=== PATIENT | female | born 1950 | race Caucasian/White ===

== ENCOUNTER 2021-11-20 00:11 | Emergency (ER) | payer MEDICARE, OTHER ==
[2021-11-20] MEDS ORDERED: SODIUM CHLORIDE 0.9% 1,000 ML IV STA (00:19)
--- NOTE | 2021-11-20 00:20 | ED ---
Neuro HPI - General Stated Complaint: Confusion Time Seen by Provider: 11/20/21 00:17 Source: RN notes reviewed, old records reviewed Limitations: no limitations - History of Present Illness Is the patient presenting with stroke symptoms?: No -: minutes(s) Initial Comments: This is a 71-year-old female to the emergency department for evaluation. Aj harkins has no medical history takes no medications no headaches no chest pain no shortness of breath. Patient had repetitive questioning after basketball game tonight. Acting herself a little disoriented low depressed a little anxious. Patient is recent hospital with no acute findings. Patient presents today with severe findings. Patient still having some mild repetitive questioning but much improved to prior Location: speech History of same: No Place: outdoors Severity: mild Quality: improving Improves With: time Context: sudden onset Associated Symptoms: confusion Treatments Prior to Arrival: none - Related Data Allergies/Adverse Reactions: Allergies Allergy/AdvReac Type Severity Reaction Status Date / Time clarithromycin [From Biaxin] Allergy Rash/Hives Verified 11/20/21 00:27 Review of Systems ROS Statement: Those systems with pertinent positive or pertinent negative responses have been documented in the HPI. ROS Other: All systems not noted in ROS Statement are negative. General Exam - General Exam Comments Initial Comments: NIH of 0 General appearance: alert, in no apparent distress Head exam: Present: atraumatic, normocephalic, normal inspection Eye exam: Present: normal appearance, PERRL, EOMI. Absent: scleral icterus, conjunctival injection, periorbital swelling ENT exam: Present: normal exam, mucous membranes moist Neck exam: Present: normal inspection. Absent: tenderness, meningismus, lymphadenopathy Respiratory exam: Present: normal lung sounds bilaterally. Absent: respiratory distress, wheezes, rales, rhonchi, stridor Cardiovascular Exam: Present: regular rate, normal rhythm, normal heart sounds. Absent: systolic murmur, diastolic murmur, rubs, gallop, clicks GI/Abdominal exam: Present: soft, normal bowel sounds. Absent: distended, tenderness, guarding, rebound, rigid Extremities exam: Present: normal inspection, full ROM, normal capillary refill. Absent: tenderness, pedal edema, joint swelling, calf tenderness Back exam: Present: normal inspection Neurological exam: Present: alert, oriented X3, CN II-XII intact Psychiatric exam: Present: normal affect, normal mood Skin exam: Present: warm, dry, intact, normal color. Absent: rash Stroke MDM - Lab Data Result diagrams: 11/20/21 00:27 11/20/21 00:27 Lab Results 11/20/21 11/20/21 11/20/21 Range/Units 00: 00:27 00:27 WBC 10.4 (3.8-10.6) k/uL RBC 4.37 (3.80-5.40) m/uL Hgb 13.5 (11.4-16.0) gm/dL Hct 43.1 (34.0-46.0) % MCV 98.6 (80.0-100.0) fL MCH 31.0 (25.0-35.0) pg MCHC 31.4 (31.0-37.0) g/dL RDW 12.6 (11.5-15.5) % Plt Count 452 H (150-450) k/uL MPV 6.6 Neutrophils % 63 % Lymphocytes % 28 % Monocytes % 5 % Eosinophils % 1 % Basophils % 1 % Neutrophils # 6.5 (1.3-7.7) k/uL Lymphocytes # 2.9 (1.0-4.8) k/uL Monocytes # 0.6 (0-1.0) k/uL Eosinophils # 0.1 (0-0.7) k/uL Basophils # 0.1 (0-0.2) k/uL PT 10.3 (9.0-12.0) sec INR 0.9 (<1.2) APTT 22.1 (22.0-30.0) sec Sodium (137-145) mmol/L Potassium (3.5-5.1) mmol/L Chloride (98-107) mmol/L Carbon Dioxide (22-30) mmol/L Anion Gap mmol/L BUN (7-17) mg/dL Creatinine (0.52-1.04) mg/dL Est GFR (CKD-EPI)AfAm (>60 ml/min/1.73 sqM) Est GFR (CKD-EPI)NonAf (>60 ml/min/1.73 sqM) Glucose (74-99) mg/dL POC Glucose (mg/dL) 151 H (75-99) mg/dL POC Glu Director Style Nikhil Mckeon Calcium (8.4-10.2) mg/dL Total Bilirubin (0.2-1.3) mg/dL AST (14-36) U/L ALT (4-34) U/L Alkaline Phosphatase (38-126) U/L Troponin I (0.000-0.034) ng/mL Total Protein (6.3-8.2) g/dL Albumin (3.5-5.0) g/dL 11/20/21 11/20/21 Range/Units 00:27 00:27 WBC (3.8-10.6) k/uL RBC (3.80-5.40) m/uL Hgb (11.4-16.0) gm/dL Hct (34.0-46.0) % MCV (80.0-100.0) fL MCH (25.0-35.0) pg MCHC (31.0-37.0) g/dL RDW (11.5-15.5) % Plt Count (150-450) k/uL MPV Neutrophils % % Lymphocytes % % Monocytes % % Eosinophils % % Basophils % % Neutrophils # (1.3-7.7) k/uL Lymphocytes # (1.0-4.8) k/uL Monocytes # (0-1.0) k/uL Eosinophils # (0-0.7) k/uL Basophils # (0-0.2) k/uL PT (9.0-12.0) sec INR (<1.2) APTT (22.0-30.0) sec Sodium 136 L (137-145) mmol/L Potassium 3.5 (3.5-5.1) mmol/L Chloride 103 (98-107) mmol/L Carbon Dioxide 19 L (22-30) mmol/L Anion Gap 14 mmol/L BUN 22 H (7-17) mg/dL Creatinine 0.95 (0.52-1.04) mg/dL Est GFR (CKD-EPI)AfAm 70 (>60 ml/min/1.73 sqM) Est GFR (CKD-EPI)NonAf 61 (>60 ml/min/1.73 sqM) Glucose 154 H (74-99) mg/dL POC Glucose (mg/dL) (75-99) mg/dL POC Glu Director Style ID Calcium 9.7 (8.4-10.2) mg/dL Total Bilirubin 0.7 (0.2-1.3) mg/dL AST 33 (14-36) U/L ALT 22 (4-34) U/L Alkaline Phosphatase 65 (38-126) U/L Troponin I <0.012 (0.000-0.034) ng/mL Total Protein 8.3 H (6.3-8.2) g/dL Albumin 5.1 H (3.5-5.0) g/dL - NIH Stroke Scale 1a. Level of Consciousness: (0) alert 1b. LOC Questions: (0) answers correctly 1c. LOC Commands: (0) performs tasks correctly 2. Best Gaze: (0) normal 3. Visual: (0) no visual loss 4. Facial Palsy: (0) normal symmetrical movement 5a. Motor Arm Left: (0) no drift 5b. Motor Arm Right: (0) no drift 6a. Motor Leg Left: (0) no drift 6b. Motor Leg Right: (0) no drift 7. Limb Ataxia: (0) absent 8. Sensory: (0) normal 9. Best Language: (0) no aphasia 10. Dysarthria: (0) normal 11. Extinction/Inattention: (0) no abnormality - Medical Decision Making 71 female to the emergency department for evaluation of repetitive questioning and some confusion. Symptoms resolved upon arrival she is out without neurological deficit and can be discharged home - Radiology Data Radiology results: report reviewed (CT brain CT had neck negative for acute disease), image reviewed - EKG Data -: EKG Interpreted by Me (EKG is sinus rhythm 83 MT 153 QRS 76 QTC 410) Course Vital Signs 11/20/21 11/20/21 11/20/21 00:17 00:32 00:47 Temperature 97.9 F 98.0 F Pulse Rate 87 82 82 Respiratory 18 16 18 Rate Blood Pressure 131/117 126/103 138/97 O2 Sat by Pulse 100 96 99 Oximetry 11/20/21 11/20/21 11/20/21 01:02 01:17 01:32 Temperature Pulse Rate 84 90 89 Respiratory 18 22 18 Rate Blood Pressure 162/89 163/80 153/80 O2 Sat by Pulse 99 97 99 Oximetry 11/20/21 11/20/21 11/20/21 02:53 02:55 04:00 Temperature Pulse Rate 78 78 85 Respiratory 16 18 18 Rate Blood Pressure 159/79 167/68 134/69 O2 Sat by Pulse 98 99 Oximetry - Reevaluation(s) Reevaluation #1: 11/20/21 04:30 Medical record is reviewed Reevaluation #2: 11/20/21 04:30 Patient was under observation here in the ER with no neurological findings or changes Reevaluation #3: 11/20/21 04:30 Patient family informed of results and questions answered Reevaluation #4: 11/20/21 04:30 Patient remains with an NIH of 0, same his presentation Reevaluation #5: 11/20/21 04:30 Patient feels good for discharge home as well as family does to - Consultations Consultation #1: Spoke with for neuro intervention and he will recommend against TPA Disposition Clinical Impression: Transient cerebral ischemia Disposition: HOME SELF-CARE Condition: Good Instructions (If sedation given, give patient instructions): Transient Ischemic Attack (ED) Is patient prescribed a controlled substance at d/c from ED?: No Referrals: Nonstaff,Physician [Primary Care Provider] - 1-2 days
[2021-11-20] MEDS ORDERED: ALTEPLASE IV STA (00:21)
[2021-11-20] MEDS ORDERED: ALTEPLASE BOLUS FOR STROKE 5 MG in EMPTY SYRINGE 1 SYR IV STA (00:21)
[2021-11-20 00:24] LABS: Glucose,Whole Blood 151 mg/dL (75-99)
--- NOTE | 2021-11-20 00:43 | CT ---
EXAMINATION TYPE: CT brain wo con for TPA DATE OF EXAM: 11/20/2021 COMPARISON: Weakness HISTORY: stroke CT DLP: 1008 mGycm Automated exposure control for dose reduction was used. Images obtained of the brain without contrast. Ventricles of normal size. There is no mass effect or midline shift. There is no sign of intracranial hemorrhage. There is no evidence of cerebral edema. Calvarium is intact. IMPRESSION: Normal unenhanced head CT scan.
--- NOTE | 2021-11-20 00:43 | XR ---
EXAMINATION TYPE: XR chest 1V DATE OF EXAM: 11/20/2021 COMPARISON: NONE HISTORY: Altered mental status TECHNIQUE: Single view FINDINGS: Heart and mediastinum are normal. Lungs are clear. Diaphragm is normal. Bony thorax appears normal. IMPRESSION: Normal chest.
[2021-11-20 01:02] LABS: Basophils # (A) 0.1 k/uL (0-0.2); Basophils % (A) 1 %; Eosinophils # (A) 0.1 k/uL (0-0.7); Eosinophils % (A) 1 %; HCT 43.1 % (34.0-46.0); HGB 13.5 gm/dL (11.4-16.0); Lymphocytes # (A) 2.9 k/uL (1.0-4.8); Lymphocytes % (A) 28 %; MCHC 31.4 g/dL (31.0-37.0); MCV 98.6 fL (80.0-100.0); Mean Platelet Volume 6.6; Monocytes # (A) 0.6 k/uL (0-1.0); Monocytes % (A) 5 %; Neutrophils # (A) 6.5 k/uL (1.3-7.7); Neutrophils % (A) 63 %; Platelet Count 452 k/uL (150-450); RBC 4.37 m/uL (3.80-5.40); RDW 12.6 % (11.5-15.5); WBC 10.4 k/uL (3.8-10.6)
[2021-11-20 01:11] LABS: Albumin 5.1 g/dL (3.5-5.0); Calcium 9.7 mg/dL (8.4-10.2); Potassium 3.5 mmol/L (3.5-5.1); Total Bilirubin 0.7 mg/dL (0.2-1.3); Total Protein 8.3 g/dL (6.3-8.2)
--- NOTE | 2021-11-20 01:11 | CT ---
EXAMINATION TYPE: CT angio head neck DATE OF EXAM: 11/20/2021 COMPARISON: None HISTORY: stroke CT DLP: 258.3 mGycm Automated exposure control for dose reduction was used. CONTRAST: Performed with IV Contrast, patient injected with 65 mL of Isovue 370. Images obtained from the aortic arch through the vertex of the brain with IV contrast. There are Thre e-D postprocessed images. There is normal branching pattern of the great vessels on the aortic arch. There is bilateral arteria l flow in the subclavian arteries. There is arterial flow in the common internal and external carotid arteries bilaterally. There is wide patency of the carotid artery bifurcations. There is arterial fl ow in both vertebral arteries. There is no evidence of carotid or vertebral artery aneurysm or dissec tion. There is arterial flow in the vertebral basilar artery system. There is arterial flow in the anterior middle and posterior cerebral arteries bilaterally. There is no flow seen in the A1 segment of the r ight anterior cerebral artery. The anterior cerebral arteries appear to fill only from the left side through the anterior communicating artery. The middle cerebral arteries appear normal. There is no ma ss effect. There is no evidence of intracranial aneurysm or neovascularity. There is normal enhancement of the venous sinuses. IMPRESSION: Negative CT angiogram of the neck. There is no flow seen in the A1 segment of the right anterior cerebral artery that could be developme ntal. The right anterior cerebral artery appears to normally fill through the anterior communicating artery. Otherwise negative CT angiogram of the brain.
[2021-11-20 01:13] VITALS: TEMP 98
[2021-11-20 01:14] LABS: INR 0.9 (<1.2); Partial Thromboplastin Time 22.1 sec (22.0-30.0); Prothrombin Time 10.3 sec (9.0-12.0)
[2021-11-20] MEDS ORDERED: SODIUM CHLORIDE 0.9% 50 ML MINI-BAG IV ONE (01:22)
[2021-11-20 02:56] VITALS: RESP 18
[2021-11-20 05:58] VITALS: BP 139/79; PULSE 80
== END 2021-11-20 06:01 | disposition home or self-care (01) ==
LOC: EC 00:11
DX: G45.9 Transient cerebral ischemic attack, unspecified (principal)
CPT/HCPCS: 36415; 93005; 80053; 84484; 85025; 85610; 85730; 71045; 70496; 70450; 70498; 99285; 96360; Q9967